=== PATIENT | female | born 1965 | race Caucasian/White ===

== ENCOUNTER 2023-07-09 03:59 | Inpatient (IN) | payer OTHER ==
[2023-07-09 04:04] LABS: Glucose,Whole Blood 209 mg/dL (70-110)
[2023-07-09] MEDS ORDERED: SODIUM CHLORIDE 0.9% 1,000 ML IV ONE (04:12)
[2023-07-09] MEDS ORDERED: SODIUM CHLORIDE 0.9% 1,000 ML IV STA (04:12)
[2023-07-09] MEDS ORDERED: ONDANSETRON 4 MG/2 ML VIAL IVP STA (04:12)
[2023-07-09] MEDS ORDERED: LORazepam 2 MG/ML INJ IV STA (04:12)
[2023-07-09 04:14] LABS: WBC 4.8 k/uL (3.8-10.6)
[2023-07-09 04:15] LABS: Basophils % (A) 1 %; Eosinophils % (A) 1 %; HCT 38.3 % (34.0-46.0); HGB 13.3 gm/dL (11.4-16.0); Lymphocytes % (A) 21 %; MCH 35.7 pg (25.0-35.0); MCHC 34.6 g/dL (31.0-37.0); MCV 103.2 fL (80.0-100.0); Macrocytosis Slight; Mean Platelet Volume 9.3; Monocytes # (A) 0.5 k/uL (0-1.0); Monocytes % (A) 10 %; Neutrophils # (A) 3.1 k/uL (1.3-7.7); Neutrophils % (A) 65 %; RBC 3.71 m/uL (3.80-5.40); RDW 13.6 % (11.5-15.5)
--- NOTE | 2023-07-09 04:16 | ED ---
Seizure HPI - General Chief Complaint: Seizure Stated Complaint: Seizure Time Seen by Provider: 07/09/23 04:04 Source: patient Mode of arrival: EMS Limitations: no limitations - History of Present Illness Initial Comments: Patient is 57-year-old woman who arrives by ambulance to evaluation after seizure. The patient reportedly had a history of seizures since approximately 2 years ago. Last previous seizure was months ago. Tonight she was at home when she had a generalized tonic-clonic seizure lasting a couple of minutes. She went to sleep tonight and then had another seizure also lasting minutes. EMS was called and they bring the patient here. On arrival she states she has had previous evaluation though she is not taking any medications. The patient does drink daily stating that she drinks proximally 3 drinks per day. She states if she gets a day she does feel extremely shaky. Patient believes she takes his seizure medicine that starts with B Complaint: seizure -: minutes(s) Description of Episode: loss of consciousness, tonic-clonic movement -: minutes(s) Witnessed: yes - by bystander Seizure History: known seizure disorder Place: home Associated Symptoms: other Treatments Prior to Arrival: none - Related Data Home Medications Medication Instructions Recorded Confirmed Folic Acid 1 mg PO DAILY 07/09/23 07/09/23 Losartan [Cozaar] 50 mg PO DAILY 07/09/23 07/09/23 Metoprolol Tartrate [Lopressor] 50 mg PO BID 07/09/23 07/09/23 amLODIPine [Norvasc] 5 mg PO DAILY 07/09/23 07/09/23 cloNIDine HCL [Catapres] 0.1 mg PO TID 07/09/23 07/09/23 Previous Rx's Medication Instructions Recorded Lacosamide [Vimpat] 50 mg PO BID 30 Days tab 07/12/23 chlordiazePOXIDE HCl [Librium] 25 mg PO DIRECTED 4 Days #10 07/12/23 capsule Allergies Allergy/AdvReac Type Severity Reaction Status Date / Time bumetanide AdvReac Nausea & Verified 07/09/23 08:47 Vomiting pollen extracts AdvReac Unknown Verified 07/09/23 08:47 Review of Systems ROS Statement: Those systems with pertinent positive or pertinent negative responses have been documented in the HPI. ROS Other: All systems not noted in ROS Statement are negative. Constitutional: Denies: fever, chills Respiratory: Denies: cough, dyspnea Cardiovascular: Denies: chest pain, palpitations Gastrointestinal: Reports: nausea, vomiting. Denies: abdominal pain, diarrhea Genitourinary: Denies: dysuria, hematuria Musculoskeletal: Denies: back pain Skin: Denies: rash Neurological: Denies: headache, weakness, numbness Psychiatric: Reports: anxiety. Denies: suicidal thoughts Past Medical History Past Medical History: Hypertension, Seizure Disorder History of Any Multi-Drug Resistant Organisms: None Reported Past Surgical History: Section Past Psychological History: Anxiety Smoking Status: Former smoker Past Alcohol Use History: Daily Past Drug Use History: None Reported General Exam Limitations: no limitations General appearance: alert, anxious Head exam: Present: atraumatic, normocephalic Eye exam: Present: normal appearance. Absent: scleral icterus, conjunctival injection ENT exam: Present: mucous membranes moist, other (Patient does have small laceration to the left lateral aspect of the tongue and also one to the distal tip of the tongue.) Neck exam: Present: normal inspection, full ROM. Absent: tenderness Respiratory exam: Present: normal lung sounds bilaterally. Absent: respiratory distress, wheezes, rales, rhonchi, stridor, accessory muscle use Cardiovascular Exam: Present: regular rate, normal rhythm, normal heart sounds. Absent: systolic murmur, diastolic murmur, rubs, gallop GI/Abdominal exam: Present: soft. Absent: distended, tenderness, guarding, rebound, rigid, mass Extremities exam: Present: normal inspection, normal capillary refill. Absent: pedal edema, calf tenderness Back exam: Present: normal inspection. Absent: CVA tenderness (R), CVA tenderness (L) Neurological exam: Present: alert Skin exam: Present: warm, dry, intact, normal color. Absent: rash Course Vital Signs 07/09/23 07/09/23 07/09/23 04:00 04:42 06:15 Temperature 98.7 F Pulse Rate 86 98 84 Respiratory 18 18 16 Rate Blood Pressure 178/96 158/79 149/77 O2 Sat by Pulse 95 98 97 Oximetry 07/09/23 07/09/23 07/09/23 10:50 13:26 14:43 Temperature 99.1 F Pulse Rate 80 70 78 Respiratory 18 18 18 Rate Blood Pressure 162/98 150/77 O2 Sat by Pulse 96 99 98 Oximetry 07/09/23 07/10/23 07/10/23 20:25 03:00 06:46 Temperature 99.2 F Pulse Rate 87 77 82 Respiratory 16 18 18 Rate Blood Pressure 169/84 140/78 169/90 O2 Sat by Pulse 97 96 96 Oximetry Medical Decision Making - Medical Decision Making Shouldn't is 57-year-old woman with history of previous seizures, arriving to have evaluation after having 2 seizures at home tonight. We'll admit patient to have neurology consultation, case discussed with internal medicine and patient will receive Keppra to prevent further seizures. In addition CIWA protocol is ordered The patient had CT of the brain which I interpreted as negative for acute intracranial hemorrhage or bony trauma. Was pt. sent in by a medical professional or institution (, PA, APPEALS REPRESENTATIVE, urgent care, hospital, or penitentiary...) When possible be specific @ -[No] Did you speak to anyone other than the patient for history (EMS, parent, family, police, friend...)? What history was obtained from this source @ -[No] Did you review nursing and triage notes (agree or disagree)? Why? @ -[I reviewed and agree with nursing and triage notes] Were old charts reviewed (outside hosp., previous admission, EMS record, old EKG, old radiological studies, urgent care reports/EKG's, penitentiary records)? Report findings @ -[No old charts were reviewed] Differential Diagnosis (chest pain, altered mental status, abdominal pain women, abdominal pain men, vaginal bleeding, weakness, fever, dyspnea, syncope, headache, dizziness, GI bleed, back pain, seizure, CVA, palpatations, mental health, musculoskeletal)? @ -[Differential Seizure: Recurrent seizure disorder, febrile seizure, alcohol withdrawal, stimulants, meningitis, encephalitis, intercranial hemorrhage, intracranial tumor, stroke, eclampsia, thyrotoxicosis, hypocalcemia, hyponatremia, hypernatremia, hypomagnesemia, psychogenic, this is not meant to be an all-inclusive list. EKG interpreted by me (3pts min.). @ -[I interpreted as above] X-rays interpreted by me (1pt min.). @ -[None done] CT interpreted by me (1pt min.). @ -[Interpreted as above U/S interpreted by me (1pt. min.). @ -[None done] What testing was considered but not performed or refused? (CT, X-rays, U/S, labs)? Why? @ -[None] What meds were considered but not given or refused? Why? @ -[None] Did you discuss the management of the patient with other professionals (professionals i.e. , PA, APPEALS REPRESENTATIVE, lab, RT, psych nurse, transition social worker, reception manager, teacher, air force senior officer, porter sample case)? Give summary @ -[Case discussed with admitting physician and treatment recommendations are incorporated Was smoking cessation discussed for >3mins.? @ -[No] Was critical care preformed (if so, how long)? @ -[No] Were there social determinants of health that impacted care today? How? (Homelessness, low income, unemployed, alcoholism, drug addiction, trans portation, low edu. Level, literacy, decrease access to med. care, long term, rehab)? @ -[No] Was there de-escalation of care discussed even if they declined (Discuss DNR or withdrawal of care, Hospice)? DNR status @ -[No] What co-morbidities impacted this encounter? (DM, HTN, Smoking, COPD, CAD, Cance r, CVA, ARF, Chemo, Hep., AIDS, mental health diagnosis, sleep apnea, morbid obesity)? @ -Alcohol dependence Was patient admitted / discharged? Hospital course, mention meds given and route, prescriptions, significant lab abnormalities, going to OR and other pertinent info. @ -[As above Undiagnosed new problem with uncertain prognosis? @ -[No] Drug Therapy requiring intensive monitoring for toxicity (Heparin, Nitro, Insulin, Cardizem)? @ -[No] Were any procedures done? @ -[No] Diagnosis/symptom? @ -[Acute generalized tonic-clonic seizure Alcohol withdrawal Acute, or Chronic, or Acute on Chronic? @ -[Acute Uncomplicated (without systemic symptoms) or Complicated (systemic symptoms)? @ -[Alcohol withdrawal complicated by seizure Side effects of treatment? @ -[No] Exacerbation, Progression, or Severe Exacerbation? @ -[No] Poses a threat to life or bodily function? How? (Chest pain, USA, GA, pneumonia, PE, COPD, DKA, ARF, appy, cholecystitis, CVA, Diverticulitis, Homicidal, Suici archie, threat to staff... and all critical care pts) @ -Yes there is significant morbidity and mortality associated with alcohol withdrawal that is not properly treated - Lab Data Result diagrams: 07/09/23 04:07 07/10/23 07:21 Lab Results 07/09/23 07/09/23 07/09/23 Range/Units 04:02 04:07 04:07 WBC 4.8 (3.8-10.6) k/uL RBC 3.71 L (3.80-5.40) m/uL Hgb 13.3 (11.4-16.0) gm/dL Hct 38.3 (34.0-46.0) % MCV 103.2 H (80.0-100.0) fL MCH 35.7 H (25.0-35.0) pg MCHC 34.6 (31.0-37.0) g/dL RDW 13.6 (11.5-15.5) % Plt Count 53 L (150-450) k/uL MPV 9.3 Neutrophils % 65 % Lymphocytes % 21 % Monocytes % 10 % Eosinophils % 1 % Basophils % 1 % Neutrophils # 3.1 (1.3-7.7) k/uL Lymphocytes # 1.0 (1.0-4.8) k/uL Monocytes # 0.5 (0-1.0) k/uL Eosinophils # 0.0 (0-0.7) k/uL Basophils # 0.0 (0-0.2) k/uL Manual Slide Review Performed Macrocytosis Slight Sodium 134 L (137-145) mmol/L Potassium 3.7 (3.5-5.1) mmol/L Chloride 101 (98-107) mmol/L Carbon Dioxide 18 L (22-30) mmol/L Anion Gap 15 mmol/L BUN 10 (7-17) mg/dL Creatinine 0.57 (0.52-1.04) mg/dL Est GFR (CKD-EPI)AfAm >90 (>60 ml/min/1.73 sqM) Est GFR (CKD-EPI)NonAf >90 (>60 ml/min/1.73 sqM) Glucose 195 H (74-99) mg/dL POC Glucose (mg/dL) 209 H (70-110) mg/dL POC Glu Metal Reed Tuner ID Heriberto Devi Calcium 9.1 (8.4-10.2) mg/dL Magnesium 1.2 L (1.6-2.3) mg/dL Total Bilirubin 1.2 (0.2-1.3) mg/dL AST 80 H (14-36) U/L ALT 40 H (4-34) U/L Alkaline Phosphatase 174 H (38-126) U/L Total Protein 8.5 H (6.3-8.2) g/dL Albumin 4.6 (3.5-5.0) g/dL Serum Alcohol <10 mg/dL - EKG Data -: EKG Interpreted by Me EKG shows normal: sinus rhythm, axis (Normal), intervals (Normal), QRS complexes (Normal), ST-T waves (Normal) Rate: normal (Rate 86 bpm) Interpretation: normal EKG Disposition Clinical Impression: Generalized seizure Disposition: ADMITTED IP TO THIS HOSP Condition: Stable Is patient prescribed a controlled substance at d/c from ED?: No
[2023-07-09 04:33] LABS: Platelet Count 53 k/uL (150-450)
[2023-07-09 04:55] LABS: ALT 40 U/L (4-34); AST 80 U/L (14-36); African American GFR (CKD) >90 (>60 ml/min/1.73 sqM); Albumin 4.6 g/dL (3.5-5.0); Alcohol <10 mg/dL; Alkaline Phosphatase 174 U/L (38-126); Anion Gap 15 mmol/L; Blood Urea Nitrogen 10 mg/dL (7-17); Calcium 9.1 mg/dL (8.4-10.2); Carbon Dioxide 18 mmol/L (22-30); Chloride 101 mmol/L (98-107); Glucose 195 mg/dL (74-99); Magnesium 1.2 mg/dL (1.6-2.3); Non-African American GFR(CKD) >90 (>60 ml/min/1.73 sqM); Potassium 3.7 mmol/L (3.5-5.1); Sodium 134 mmol/L (137-145); Total Bilirubin 1.2 mg/dL (0.2-1.3); Total Protein 8.5 g/dL (6.3-8.2)
[2023-07-09] MEDS ORDERED: MAGNESIUM SULFATE-D5W PMX 1 GM in DEXTROSE/WATER 1 100ML.BAG IVPB ONE (05:03)
[2023-07-09] MEDS ORDERED: ACETAMINOPHEN TAB 325 MG TAB PO PRN (06:42)
[2023-07-09] MEDS ORDERED: NALOXONE 0.4 MG/ML 1 ML VIAL IV PRN (06:42)
[2023-07-09] MEDS ORDERED: chlordiazePOXIDE 25 MG CAP PO PRN (06:46)
[2023-07-09] MEDS ORDERED: LORazepam 2 MG/ML INJ IV PRN ×3 (06:46)
--- NOTE | 2023-07-09 07:33 | CT ---
EXAMINATION TYPE: CT brain wo con DATE OF EXAM: 07/09/2023 COMPARISON: 05/14/2023 HISTORY: 57-year-old female Seizure TECHNIQUE: Examination was done in axial plane without intravenous contrast. Coronal and sagittal r econstructions performed. CT DLP: 1094.9 mGycm Automated exposure control for dose reduction was used. FINDINGS: There is no evidence of acute intracranial hemorrhage, acute ischemic changes, mass, mass-effect, or extra-axial fluid collection. There is no effacement of cerebral sulci or basal subarachnoid cister ns. There is no hydrocephalus. There is no midline shift. Del Angel-white matter distinction is preserv ed. Mild patchy white matter hypodensities in both cerebral hemispheres. Paranasal sinuses and mastoid air cells well pneumatized. Orbits and globes are intact. IMPRESSION: Mild patchy burden of chronic small vessel ischemic disease. No acute intracranial abnormality seen.
[2023-07-09] MEDS ORDERED: levETIRAcetam IV 2,000 MG in SODIUM CHLORIDE 0.9% 250 ML IVPB ONE (08:00)
[2023-07-09] MEDS ORDERED: FAMOTIDINE 20 MG TAB PO SCH (09:00)
[2023-07-09] MEDS ORDERED: Magnesium Replacement Protocol 1 EACH MISC MISCELLANE PRN (09:32)
[2023-07-09] MEDS ORDERED: DEXTROSE 50% SYRINGE 50 ML IVP PRN ×2 (09:35)
[2023-07-09] MEDS: SODIUM CHLORIDE 0.9% 1,000 ML IV SCH ×3 (10:00→21:11)
[2023-07-09] MEDS: PANTOPRAZOLE 40 MG/10 ML VIAL IVP SCH ×2 (11:01→20:27)
[2023-07-09] MEDS: amLODIPine 5 MG TAB PO SCH (11:02)
[2023-07-09] MEDS: cloNIDine HCL 0.1 MG TAB PO SCH ×2 (11:02→15:13)
[2023-07-09] MEDS: LOSARTAN 50 MG TAB PO SCH (11:02)
[2023-07-09] MEDS: FOLIC ACID 1 MG TAB PO SCH (11:03)
[2023-07-09] MEDS: METOPROLOL TARTRATE 50 MG TAB PO SCH ×2 (11:03→20:27)
[2023-07-09] MEDS: MAGNESIUM SULFATE-D5W PMX 1 GM in DEXTROSE/WATER 1 100ML.BAG IVPB SCH ×4 (11:26→17:34)
[2023-07-09 13:04] LABS: Glucose,Whole Blood 124 mg/dL (70-110)
[2023-07-09] MEDS: INSULIN ASPART (NovoLOG) 100 UNIT/ML VIAL SQ SCH ×3 (13:07→21:20)
--- NOTE | 2023-07-09 13:09 | P.CNNES ---
History of Present Illness Consult date: 07/09/23 Requesting physician: Nato Brewer Reason for Consult: seizure History of Present Illness: This is a 57-year-old woman who presented emergency department because of the seizure. Patient's boyfriend is at bedside. The patient she had the seizure activity and per the boyfriend she had 2 seizure-like activity in which at 1:30 AM today boyfriend woke up from bed and she was shaking all over, had nausea vomiting. The episode last for 5 minutes and had the post ictal confusion. She had tongue bite. Then she had another episode after that. Patient drinks daily alcohol according to the boyfriend and it's heavy alcohol. She drinks between 3-4 small bottles but per boyfriend it heavy concentrated in alcohol and last drink was 2 days ago. Cord the boyfriend she had 5 seizure-like activity this year. According to the patient the these happened she thinks when she stopped drinking alcohol but. Been having seizure-like activity for couple years. She denies it being at [facility] in the past or being on any antiepileptic drugs. She denies of any brain mass. Denies any fevers. Denies of any sickness. She does have underlying anxiety. At times when patient was talking she was tangential. Some of the workup during his hospital visit consisted of: Patient is afebrile Serum glucose is 195, sodium is 134, calcium is 9.1, magnesium is 1.2, AST of 80 and ALT of 40. Ammonia level is 19. Serum alcohol level is <10. CT of the head is reported as mild patchy burden of chronic small vessel isch emic disease. No acute intracranial abnormality seen. Personally reviewed the CT and I agree there is no acute subacute the ischemia or any acute abnormality. Review of Systems The positive and negative as per HPI. Past Medical History Past Medical History: Hypertension, Seizure Disorder History of Any Multi-Drug Resistant Organisms: None Reported Past Surgical History: Section Past Psychological History: Anxiety Smoking Status: Former smoker Past Alcohol Use History: Daily Past Drug Use History: None Reported Medications and Allergies Home Medications Medication Instructions Recorded Confirmed Type Folic Acid 1 mg PO DAILY 07/09/23 07/09/23 History Losartan [Cozaar] 50 mg PO DAILY 07/09/23 07/09/23 History Metoprolol Tartrate [Lopressor] 50 mg PO BID 07/09/23 07/09/23 History amLODIPine [Norvasc] 5 mg PO DAILY 07/09/23 07/09/23 History cloNIDine HCL [Catapres] 0.1 mg PO TID 07/09/23 07/09/23 History hydrOXYzine HCL [Atarax] 10 mg PO TID PRN 07/09/23 07/09/23 History Allergies Allergy/AdvReac Type Severity Reaction Status Date / Time bumetanide AdvReac Nausea & Verified 07/09/23 08:47 Vomiting pollen extracts AdvReac Unknown Verified 07/09/23 08:47 Physical Examination - Vital Signs Vital Signs: Vital Signs Temp Pulse Resp BP Pulse Ox 07/09/23 10:50 99.1 F 80 18 162/98 96 07/09/23 06:15 84 16 149/77 97 07/09/23 04:42 98 18 158/79 98 07/09/23 04:00 98.7 F 86 18 178/96 95 Intake and Output 07/08/23 07/09/23 07/09/23 22:59 06:59 14:59 Other: Weight 68.039 kg GENERAL: The patient is lying in bed and is not in acute distress. Psych: At times patient is tangential. NEUROLOGICAL: Higher mental function: The patient is awake, alert, oriented to self, place and time. Patient is following commands. No aphasia and no neglect. As stated earlier at times patient is tangential. Cranial nerves: The pupils are round, equal and reactive to light. Visual betancourt are full to confrontation throughout. Extraocular movement is intact no nystagmus is noted. Facial sensation is normal to touch throughout. The facial strength is normal throughout. Hearing is normal bilaterally to hand rub. Tongue is midline and moved [id number] without any difficulty. No dysarthria is noted. Has tongue bite over the left later mid-region. Shoulder shrug is normal bilaterally. Motor: The strength is 5 over 5 throughout. Normal tone and bulk. Cerebellum: Normal finger to nose bilaterally. Sensation: Sensation is normal to touch throughout. Reflexes (right/left): 2+ throughout Plantars are downgoing bilaterally. Results - Laboratory Findings CBC and BMP: 07/09/23 04:07 07/09/23 04:07 Abnormal Lab Findings: Abnormal Labs 07/09/23 07/09/23 07/09/23 04:02 04:07 04:07 RBC 3.71 L MCV 103.2 H MCH 35.7 H Plt Count 53 L Sodium 134 L Carbon Dioxide 18 L Glucose 195 H POC Glucose (mg/dL) 209 H Magnesium 1.2 L AST 80 H ALT 40 H Alkaline Phosphatase 174 H Total Protein 8.5 H Assessment and Plan Assessment: This is a 57-year-old woman with history of seizures, heavy alcohol use who presented emergency department because of the 2 seizure-like activity past midnight according to the bodyfriend. Her last alcohol drink was two days ago. The patient whenever she tries to stop drinking she'll get his seizures and she is not on any antiepileptic drugs. Alcohol level <10. Break-through seizure: Seems provoked due to alcohol withdrawal and component of electrolyte derangement (hypomagnesemia). Cannot rule out epileptic in nature. History of seizures. Not on antiepileptic drug. Hypomagenesemia. Heavy alcohol use on daily basis and last drink was 2 days ago Anxiety Plan: The ED gave the patient's Ativan 2 mg once then give her Keppra 2 g once. I started the patient on the Vimpat 50 mg twice a day since the patient has been having multiple seizures for year and I cannot rule out true epileptic natures. It seems more provoked seizures. I'll not start the patient on Keppra because of the side effects of the mood/behavioral especially with her severe anxiety and her boyfriend agrees with that. EEG is ordered pending I ordered MRI the brain Patient is on thiamine 100 mg daily, folic acid 1 mg daily. Seizure precautions seizure pads Per the [place] DMV, because of the seizures to avoid driving for 6 month until seizure-free, avoid heights, avoids swimming unassisted or using heavy machinery. Comment correction of hypomagnesemia we'll defer the management to the primary team We'll defer the rest of the medical management to primary team. Patient was counseled on alcohol cessation and consideration on inpatient rehab for alcohol use. The patient that she needs to follow-up with a neurologist as an outpatient within 1-2 weeks Plan discussed with the patient and her boyfriend who is at bedside as well as the patient nurse. Thank you for the consultation. Time with Patient: Greater than 30
--- NOTE | 2023-07-09 14:34 | MR ---
EXAMINATION TYPE: MR brain wo/w con DATE OF EXAM: 07/09/2023 COMPARISON: CT brain earlier today HISTORY: Seizure TECHNIQUE: Multiplanar, multisequence images of the brain and brainstem is performed without and with IV contras t, utilizing 6.5 mL intravenous Gadavist . FINDINGS: Diffusion weighted images demonstrate no evidence of a recent infarct or other diffusion ab normality. There is mild ventricular and sulcal prominence. There are scattered focal and confluent areas of T2 hyperdensity in the white matter bilaterally. Findings most prominent in the periventricu lar levels. T2 coronal weighted images show hippocampal direct comparison symmetric and felt within n ormal limits. Midline structures demonstrate normal morphology. The craniocervical junction appears within normal limits. Post contrast images demonstrate no abnormal enhancement. The dural venous sinuses appear pa tent. The visualized sinuses are clear and the globes are intact. IMPRESSION: 1. Mild diffuse cerebral atrophy and moderate chronic small vessel ischemic changes are appreciated. No suspicious enhancement or enhancing masses are noted.
--- NOTE | 2023-07-09 15:10 | P.HPIM ---
History of Present Illness H&P Date: 07/09/23 This is a 57-year-old female with medical history of hypertension and seizure disorder, anxiety former smoker and reports to daily alcohol use. Her seizure history is attributed to alcohol withdrawal seizure. She is maintained on antiseizure medication states that it starts with a B likely this is briviact she states that her PCP Dr. Woo started her on this. Patient admits to drinking 3 to 4 small sized wine bottles daily for the last 3 months she had been sober on and off since 2011 states she has been going to . Had a big family reunion out of state and began drinking daily. She does report her last drink as 2 days ago. Since then she has been having nausea vomiting and feeling off. States she had an episode of vomiting went to bed woke up and had a seizure. She did bite her tongue it is reddened and bruised. Initial Seizure onset was about 2 years ago and her most recent seizure was a few months ago prior to this episode. 5 reports in the last year, she is still driving. Seizure was witnessed by her significant other who had called EMS. Patient states when she came to EMS was there and brought her to the hospital for evaluation. Denies any headache, no dizziness or lightheadedness, no shortness of breath no chest pain. No difficulty swallowing or visual disturbances. No fever or chills no recent illness. Brain CT shows mild patchy burden of chronic small vessel ischemic disease with no acute intracranial abnormalities seen. EKG shows normal sinus rhythm heart rate of [address] or T-wave changes with evidence. Blood work on admission reveals a MCV of 103.2, platelet count of 53, sodium 134, glucose 195, magnesium 1.2 with elevated LFTs. She is admitted to the hospital under medicine with a consult placed to neurology for seizure-like activity. She has been started on CIWA protocol for alcohol withdrawal. Patient received magnesium supplementation. She received a prophylactic dose of IV keppra in the ER. REVIEW OF SYSTEMS: CONSTITUTIONAL: No fever, no malaise, no fatigue. HEENT: No recent visual problems or hearing problems. Denied any sore throat. CARDIOVASCULAR: No chest pain, orthopnea, PND, no palpitations, no syncope. PULMONARY: No shortness of breath, no cough, no hemoptysis. GASTROINTESTINAL: No diarrhea, no nausea, no vomiting, no abdominal pain. NEUROLOGICAL: No headaches, no weakness, no numbness. HEMATOLOGICAL: Denies any bleeding or petechiae. GENITOURINARY: Denies any burning micturition, frequency, or urgency. MUSCULOSKELETAL/RHEUMATOLOGICAL: Denies any joint pain, swelling, or any muscle pain. ENDOCRINE: Denies any polyuria or polydipsia. The rest of the 14-point review of systems is negative. PHYSICAL EXAMINATION: GENERAL: The patient is alert and oriented x3, not in any acute distress. Well developed, well nourished. HEENT: Pupils are round and equally reacting to light. EOMI. No scleral icterus. No conjunctival pallor. Normocephalic, atraumatic. No pharyngeal erythema. No thyromegaly. CARDIOVASCULAR: S1 and S2 present. No murmurs, rubs, or gallops. PULMONARY: Chest is clear to auscultation, no wheezing or crackles. ABDOMEN: Soft, nontender, nondistended, normoactive bowel sounds. No palpable organomegaly. MUSCULOSKELETAL: No joint swelling or deformity. EXTREMITIES: No cyanosis, clubbing, or pedal edema. NEUROLOGICAL: Gross neurological examination did not reveal any focal deficits. SKIN: No rashes. Assessment -Acute alcohol withdrawal and DTs last drink 2 days ago patient has been started on ativan CIWA protocol. Seizure precautions. -Seizure like activity likely from alcohol withdrawal patient does have history of alcohol withdrawal seizure and is maintained on antiseizure medication at home, however she has been noncompliant and has not been taking her medication daily. Neurology placed on consultation -Chronic alcoholism -Thrombocytopenia and macrocytosis from chronic alcohol use -Hyponatremia hypovolemic patient had multiple episodes of nausea and vomiting over the last few days -Hypomagnesemia supplemented and repeat level tomorrow -Hyperglycemia rule out diabetes mellitus -Alcoholic hepatitis follow up CMP tomorrow. -Hx seizure disorder GI prophylaxis Full Code The impression and plan of care has been dictated by Madelaine Freeman, Nurse Practitioner as directed. Dr. Krishan MD I have performed a history and physical examination and medical decision making of this patient, discussed the same with the dictator, and agree with the dictators assessment and plan as written, documented as a scribe. Based on total visit time, I have performed more than 50% of this visit. Past Medical History Past Medical History: Hypertension, Seizure Disorder History of Any Multi-Drug Resistant Organisms: None Reported Past Surgical History: Section Past Psychological History: Anxiety Smoking Status: Former smoker Past Alcohol Use History: Daily Past Drug Use History: None Reported Medications and Allergies Home Medications Medication Instructions Recorded Confirmed Type Folic Acid 1 mg PO DAILY 07/09/23 07/09/23 History Losartan [Cozaar] 50 mg PO DAILY 07/09/23 07/09/23 History Metoprolol Tartrate [Lopressor] 50 mg PO BID 07/09/23 07/09/23 History amLODIPine [Norvasc] 5 mg PO DAILY 07/09/23 07/09/23 History cloNIDine HCL [Catapres] 0.1 mg PO TID 07/09/23 07/09/23 History hydrOXYzine HCL [Atarax] 10 mg PO TID PRN 07/09/23 07/09/23 History Allergies Allergy/AdvReac Type Severity Reaction Status Date / Time bumetanide AdvReac Nausea & Verified 07/09/23 08:47 Vomiting pollen extracts AdvReac Unknown Verified 07/09/23 08:47 Physical Exam Vitals: Vital Signs Temp Pulse Resp BP Pulse Ox 07/09/23 06:15 84 16 149/77 97 07/09/23 04:42 98 18 158/79 98 07/09/23 04:00 98.7 F 86 18 178/96 95 Intake and Output 07/08/23 07/09/23 07/09/23 22:59 06:59 14:59 Other: Weight 68.039 kg Results CBC & Chem 7: 07/09/23 04:07 07/09/23 04:07 Labs: Abnormal Lab Results - Last 24 Hours (Table) 07/09/23 07/09/23 07/09/23 Range/Units 04:02 04:07 04:07 RBC 3.71 L (3.80-5.40) m/uL MCV 103.2 H (80.0-100.0) fL MCH 35.7 H (25.0-35.0) pg Plt Count 53 L (150-450) k/uL Sodium 134 L (137-145) mmol/L Carbon Dioxide 18 L (22-30) mmol/L Glucose 195 H (74-99) mg/dL POC Glucose (mg/dL) 209 H (70-110) mg/dL Magnesium 1.2 L (1.6-2.3) mg/dL AST 80 H (14-36) U/L ALT 40 H (4-34) U/L Alkaline Phosphatase 174 H (38-126) U/L Total Protein 8.5 H (6.3-8.2) g/dL Assessment and Plan Time with Patient: Less than 30
[2023-07-09 17:46] LABS: Glucose,Whole Blood 107 mg/dL (70-110)
--- NOTE | 2023-07-09 19:46 | EEG ---
ELECTROENCEPHALOGRAM REPORT CLINICAL HISTORY: This is a 57-year-old woman with history of seizure, alcohol use, who presented to the emergency department because of two seizure-like activities at home. The video EEG is obtained to evaluate for seizure epileptiform activity. RELEVANT MEDICATIONS: Keppra, Ativan. EEG TYPE: A routine 21-channel EEG with video using the 10/20 electrode placement system. DESCRIPTION: Wakefulness is only obtained. During awake state, the posterior-dominant rhythm consists of iwa-ca-fxrdtgaw voltage of 8.5 to 9.5 hertz activity. There is no physiological stage 2 sleep architecture. There is no focal slowing. Interictal and ictal is none. ACTIVATION PROCEDURE: Photic stimulation did not evoke a posterior driving response. There is no abnormality during the photic stimulation. Hyperventilation is not performed. CLINICAL INTERPRETATION: This is a normal routine EEG. There is no focal slowing, epileptiform discharge, or seizure on the EEG. A normal routine EEG does not rule out underlying epilepsy. Clinical correlation is recommended. AXEL / CRYSTAL: [id number] / ROBERTO
[2023-07-09] MEDS: LACOSAMIDE 50 MG TABLET PO SCH (20:27)
[2023-07-09] MEDS ORDERED: lamoTRIgine 25 MG TAB PO SCH (21:00)
[2023-07-09 21:20] LABS: Glucose,Whole Blood 118 mg/dL (70-110)
[2023-07-10 04:27] VITALS: RESP 18
[2023-07-10] MEDS: SODIUM CHLORIDE 0.9% 1,000 ML IV SCH (06:53)
[2023-07-10 08:06] LABS: Glucose,Whole Blood 119 mg/dL (70-110)
[2023-07-10] MEDS: METOPROLOL TARTRATE 50 MG TAB PO SCH (08:21)
[2023-07-10] MEDS: LACOSAMIDE 50 MG TABLET PO SCH (08:21)
[2023-07-10] MEDS: INSULIN ASPART (NovoLOG) 100 UNIT/ML VIAL SQ SCH ×2 (08:21→11:47)
[2023-07-10] MEDS: amLODIPine 5 MG TAB PO SCH (08:21)
[2023-07-10] MEDS: FOLIC ACID 1 MG TAB PO SCH (08:21)
[2023-07-10] MEDS: cloNIDine HCL 0.1 MG TAB PO SCH (08:21)
[2023-07-10] MEDS: LOSARTAN 50 MG TAB PO SCH (08:21)
[2023-07-10] MEDS: PANTOPRAZOLE 40 MG/10 ML VIAL IVP SCH (08:22)
[2023-07-10 08:27] VITALS: BP 173/83; PULSE 78; TEMP 98.8
[2023-07-10] MEDS ORDERED: THIAMINE 100 MG TAB PO SCH (09:00)
[2023-07-10] MEDS ORDERED: SODIUM CHLORIDE 0.9% 1,000 ML IV SCH (10:00)
[2023-07-10 10:27] LABS: ALT 34 U/L (4-34); AST 83 U/L (14-36); African American GFR (CKD) >90 (>60 ml/min/1.73 sqM); Albumin 4.5 g/dL (3.5-5.0); Albumin/Globulin Ratio 1.2; Alkaline Phosphatase 137 U/L (38-126); Anion Gap 11 mmol/L; Blood Urea Nitrogen 5 mg/dL (7-17); Calcium 9.1 mg/dL (8.4-10.2); Carbon Dioxide 23 mmol/L (22-30); Chloride 103 mmol/L (98-107); Globulin 3.9 g/dL; Glucose 109 mg/dL (74-99); Magnesium 1.9 mg/dL (1.6-2.3); Non-African American GFR(CKD) >90 (>60 ml/min/1.73 sqM); Potassium 3.5 mmol/L (3.5-5.1); Sodium 137 mmol/L (137-145); Total Bilirubin 1.5 mg/dL (0.2-1.3); Total Protein 8.4 g/dL (6.3-8.2)
[2023-07-10 11:28] LABS: Glucose,Whole Blood 109 mg/dL (70-110)
--- NOTE | 2023-07-10 12:50 | P.PN ---
Subjective Progress Note Date: 07/10/23 I am following-up with patient and per the nurse no further seizures yesterday or today. Patient feels she is doing better. Her PCP office was contacted by the nurse and patient was never given a script for seizure medications. Objective - Vital Signs Vital signs: Vital Signs Temp 98.8 F 07/10/23 08:03 Pulse 78 07/10/23 08:03 Resp 18 07/10/23 08:03 BP 173/83 07/10/23 08:03 Pulse Ox 96 07/10/23 08:03 FiO2 Intake & Output 07/09/23 07/10/23 07/10/23 18:59 06:59 18:59 Weight 68.039 kg - Exam General: Lying in bed and is not in acute distress. Neuro: The patient is awake, alert, oriented to self, place and time. Is following simple commands. No aphasia or neglect. Pupils are round, right is 4mm and left is 3mm and reactive to light equally. Visual bet[place] are full to confrontation. EOM is intact and no nystagmus. No dysarthria. Motor: Strength is 5/5 throughout. Sensation: Normal to touch throughout. Some of the workup during his hospital visit consisted of: Patient is afebrile Serum glucose is 195, sodium is 134, calcium is 9.1, magnesium is 1.2, AST of 80 and ALT of 40. Ammonia level is 19. Serum alcohol level is <10. CT of the head is reported as mild patchy burden of chronic small vessel ischemic disease. No acute intracranial abnormality seen. Personally reviewed the CT and I agree there is no acute subacute the ischemia or any acute abnormality. Routine EEG is normal. MRI Brain is reported as Mild diffuse cerebral atrophy and moderate chronic small vessel ischemic changes are appreciated. No suspicious enhancement or enhancing masses noted. I personally reviewed MRI and agree with report. - Labs CBC & Chem 7: 07/09/23 04:07 07/10/23 07:21 Labs: Abnormal Lab Results - Last 24 Hours (Table) 07/09/23 07/09/23 07/09/23 Range/Units 11:02 13:02 21:19 BUN (7-17) mg/dL Glucose (74-99) mg/dL POC Glucose (mg/dL) 124 H 118 H (70-110) mg/dL Total Bilirubin (0.2-1.3) mg/dL AST (14-36) U/L Alkaline Phosphatase (38-126) U/L Total Protein (6.3-8.2) g/dL RBC Folate 797 H (280 - 791) ng/mL 07/10/23 07/10/23 Range/Units 07:21 08:04 BUN 5 L (7-17) mg/dL Glucose 109 H (74-99) mg/dL POC Glucose (mg/dL) 119 H (70-110) mg/dL Total Bilirubin 1.5 H (0.2-1.3) mg/dL AST 83 H (14-36) U/L Alkaline Phosphatase 137 H (38-126) U/L Total Protein 8.4 H (6.3-8.2) g/dL RBC Folate (280 - 791) ng/mL Assessment and Plan Assessment: This is a 57-year-old woman with history of seizures, heavy alcohol use who presented emergency department because of the 2 seizure-like activity past midnight according to the bodyfriend. Her last alcohol drink was two days ago. The patient whenever she tries to stop drinking she'll get his seizures and she is not on any antiepileptic drugs. Alcohol level <10. Break-through seizure: Seems provoked due to alcohol withdrawal and component of electrolyte derangement (hypomagnesemia). Cannot rule out epileptic in nature. EEG and MRI are unremarkable. History of seizures. Not on antiepileptic drug. Hypomagenesemia--resolved Heavy alcohol use on daily basis and last drink was 2 days ago Anxiety Plan: I started the patient on the Vimpat 50 mg twice a day since the patient has been having multiple seizures for year and I cannot rule out true epileptic natures. I'll not start the patient on Keppra because of the side effects of the mood/behavioral especially with her severe anxiety and her boyfriend agrees with that. Patient is on thiamine 100 mg daily, folic acid 1 mg daily. Seizure precautions seizure pads Per the machine DMV, because of the seizures to avoid driving for 6 month until seizure-free, avoid heights, avoids swimming unassisted or using heavy machinery. We'll defer the rest of the medical management to primary team. Patient was counseled on alcohol cessation and consideration on inpatient rehab for alcohol use. She refused and wants seek [facility] as outpatient. The patient that she needs to follow-up with a neurologist as an outpatient within 1-2 weeks Plan discussed with the patient, N.P. from primary team and her nurse. There is no further neurological work-up. Will sign off. Please reconsult if needed. Time with Patient: Less than 30
--- NOTE | 2023-07-12 22:39 | P.DS ---
Providers Date of admission: 07/09/23 06:42 Attending physician: Andria Love Consults: 07/09/23 06:42 Consult Physician Routine Consulting Provider: Kyle Babni Consult Reason/Comments: seizures Do you want consulting provider notified?: Yes Primary care physician: Chilo Denson Hospital Course: Final Diagnosis -Acute alcohol withdrawal and DTs last drink 2 days ago -Seizure like activity likely from alcohol withdrawal patient does have history of alcohol withdrawal seizure -Chronic alcoholism -Thrombocytopenia and macrocytosis from chronic alcohol use -Hyponatremia hypovolemic patient had multiple episodes of nausea and vomiting over the last few days -Hypomagnesemia supplemented -Hyperglycemia rule out diabetes mellitus -Alcoholic hepatitis follow up CMP tomorrow. -Hx seizure disorder Discharge Disposition Patient is stable for discharge. Recommending total alcohol cessation. Has been sent on librium taper for the next 4 days. Advised cannot drink alcohol while on librium and patient agrees. Patient to return to AA meetings and other community resources and also will look into rehab. Patient has been started on Vimpat BID . Recommending to see a neurologist in 1 week. Follow up with PCP and also repeat labs n 2 to 3 days. Per the DMV, because of the seizures to avoid driving for 6 month until seizure-free, avoid heights, avoids swimming unassisted or using heavy machinery. Hospital Course This is a 57-year-old female with medical history of hypertension and seizure disorder, anxiety former smoker and reports to daily alcohol use. Her seizure history is attributed to alcohol withdrawal seizure. She is maintained on antiseizure medication states that it starts with a B likely this is briviact she states that her PCP Dr. Woo started her on this. Patient admits to drinking 3 to 4 small sized wine bottles daily for the last 3 months she had been sober on and off since 2011 states she has been going to AA. Had a big family reunion out of state and began drinking daily. She does report her last drink as 2 days ago. Since then she has been having nausea vomiting and feeling off. States she had an episode of vomiting went to bed woke up and had a seizure. She did bite her tongue it is reddened and bruised. Initial Seizure onset was about 2 years ago and her most recent seizure was a few months ago prior to this episode. 5 reports in the last year, she is still driving. Seizure was witnessed by her significant other who had called EMS. Patient states when she came to EMS was there and brought her to the hospital for evaluation. Denies any headache, no dizziness or lightheadedness, no shortness of breath no chest pain. No difficulty swallowing or visual disturbances. No fever or chills no recent illness. Brain CT shows mild patchy burden of chronic small vessel ischemic disease with no acute intracranial abnormalities seen. EKG shows normal sinus rhythm heart rate of [address] or T-wave changes with evidence. Blood work on admission reveals a MCV of 103.2, platelet count of 53, sodium 134, glucose 195, magnesium 1.2 with elevated LFTs. She is admitted to the hospital under medicine with a consult placed to neurology for seizure-like activity. She has been started on CIWA protocol for alcohol withdrawal. Patient received magnesium supplementation. She received a prophylactic dose of IV keppra in the ER. Neurology recommending further work up. Patient had a brain MRI done showing mild diffuse cerebral atrophy and moderate chronic small vessel ischemic changes are appreciated. No suspicious enhancement or enhancing masses are noted. Had EEG which was normal routine EEG with no focal slowing, epileptiform discharge or seizure on the EEG. Neurology did recommending starting the patient on vimpat 50 mg BID. She has been monitored and is not requiring ativan and has no further seizure like activity noted. She is currently alert x3. Discussed the importance of alcohol cessation with patient who verbalizes understanding and has plan to begin attending AA meetings. Patient does have to work on Thursday, discussed that per DMV patient cannot drive or operative heavy machinery climb ladders or swim alone for the next 6 months or until seizure free. She needs to follow up with a neurologist on disharge. Please see medication reconciliation for a list of current medications. Thank you for allowing us to participate in the care of this patient. The impression and plan of care has been dictated by Madelaine Freeman Nurse Practitioner as directed. Dr. Krishan MD I have performed a history and physical examination and medical decision making of this patient, discussed the same with the dictator, and agree with the dictators assessment and plan as written, documented as a scribe. Based on total visit time, I have performed more than 50% of this visit. Patient Condition at Discharge: Stable Plan - Discharge Summary Discharge Rx Participant: Yes New Discharge Prescriptions: New Lacosamide [Vimpat] 50 mg PO BID 30 Days tab chlordiazePOXIDE HCl [Librium] 25 mg PO DIRECTED 4 Days #10 capsule Continue amLODIPine [Norvasc] 5 mg PO DAILY Losartan [Cozaar] 50 mg PO DAILY Folic Acid 1 mg PO DAILY Metoprolol Tartrate [Lopressor] 50 mg PO BID cloNIDine HCL [Catapres] 0.1 mg PO TID Discontinued hydrOXYzine HCL [Atarax] 10 mg PO TID PRN PRN Reason: Anxiety Discharge Medication List Folic Acid 1 mg PO DAILY 07/09/23 [History] Losartan [Cozaar] 50 mg PO DAILY 07/09/23 [History] Metoprolol Tartrate [Lopressor] 50 mg PO BID 07/09/23 [History] amLODIPine [Norvasc] 5 mg PO DAILY 07/09/23 [History] cloNIDine HCL [Catapres] 0.1 mg PO TID 07/09/23 [History] Lacosamide [Vimpat] 50 mg PO BID 30 Days tab 07/12/23 [Rx] chlordiazePOXIDE HCl [Librium] 25 mg PO DIRECTED 4 Days #10 capsule 07/12/23 [Rx] Follow up Appointment(s)/Referral(s): Jarett Woo MD [Primary Care Provider] - 1-2 days (Office is closed at time discharge. Please call for follow-up appointment.) Barbara Landis MD [Medical Doctor] - 1 Week (Office states to have patient call for appointment time and date.) Ambulatory/Diagnostic Orders: Basic Metabolic Panel [LAB.AMB] Time Frame: 3 Days, Location: None Selected Magnesium [LAB.AMB] Location: None Selected Patient Instructions/Handouts: Seizure/Epilepsy Discharge Instructions & Follow-Up Activity/Diet/Wound Care/Special Instructions: Per the DMV, because of the seizures to avoid driving for 6 month until seizure- free, avoid heights, avoids swimming unassisted or using heavy machinery. Patient is started on VIMPAT twice a day for seizures Activity limited until follow up Needs to see PCP Recommend total alcohol cessation Do Not drink alcohol while using librium for alcohol withdrawal symptoms Discharge/Stand Alone Forms: AA Meetings [place], Area PCPs Discharge Disposition: HOME SELF-CARE
== END 2023-07-10 16:18 | disposition home or self-care (01) | DRG 897 ==
LOC: EC 03:59 → 4SSUR 06:42
PROVIDERS: ADMIT Hospitalist; ATTEND Hospitalist
DX: F10.231 Alcohol dependence with withdrawal delirium (principal); E87.1 Hypo-osmolality and hyponatremia; G40.909 Epilepsy, unspecified, not intractable, without status epilepticus; F41.9 Anxiety disorder, unspecified; E83.42 Hypomagnesemia; I10 Essential (primary) hypertension; K70.10 Alcoholic hepatitis without ascites; D69.6 Thrombocytopenia, unspecified; Z79.899 Other long term (current) drug therapy; Z87.891 Personal history of nicotine dependence; T42.76XA Underdosing of unspecified antiepileptic and sedative-hypnotic drugs, initial encounter; Z91.128 Patient's intentional underdosing of medication regimen for other reason; Z91.199 Patient's noncompliance with other medical treatment and regimen due to unspecified reason
CPT/HCPCS: 36415; 70450; 70553; 80053; 80320; 82140; 82607; 82747; 83036; 83735; 85025; 93005; 95816; 96361; 96365; 96366; 96367; 96375; 96376; 99285

== ENCOUNTER 2023-10-15 15:21 | Observation (INO) | payer OTHER ==
[2023-10-15] MEDS ORDERED: LORazepam 2 MG/ML INJ IV PRN ×2 (15:59)
--- NOTE | 2023-10-15 16:28 | XR ---
EXAMINATION TYPE: XR chest 1V portable DATE OF EXAM: 10/15/2023 COMPARISON: 02/18/2019 HISTORY: Abdominal pain TECHNIQUE: Single frontal view of the chest is obtained. FINDINGS: There is no focal air space opacity, pleural effusion, or pneumothorax seen. The cardiac silhouette size is within normal limits for the technique. The osseous structures are intact. IMPRESSION: No acute process.
--- NOTE | 2023-10-15 16:35 | ED ---
General Adult HPI - General Chief complaint: Alcohol Stated complaint: Seizures/shaky Time Seen by Provider: 10/15/23 15:52 Source: patient, RN notes reviewed, old records reviewed Mode of arrival: ambulatory Limitations: no limitations - History of Present Illness Initial comments: Patient is a 57-year-old female who presents emergency department complaining of alcohol withdrawals and stating she is concerned she may have a seizure. Suppos ed to be on lacosamide for seizures however has been out of her medication since Thursday. Is asking for refill, but states she also is asking to look to detox from alcohol. Does have a history of delirium tremens per patient, with delirium as well as alcohol induced seizures. She currently denies any chest pain or shortness of breath. Endorses mild epigastric discomfort. Has no other acute complaints at this time. Presents for further evaluation at this time. Denies any fevers, chills, cough. Denies any recent seizures. Last drink was yesterday. - Related Data Home Medications Medication Instructions Recorded Confirmed Folic Acid 1 mg PO DAILY 07/09/23 10/15/23 amLODIPine [Norvasc] 10 mg PO DAILY 07/09/23 10/15/23 cloNIDine HCL [Catapres] 0.1 mg PO TID 07/09/23 10/15/23 Bumetanide [BUMEX] 0.5 mg PO DAILY PRN 10/15/23 10/15/23 Melatonin 5 mg PO HS 10/15/23 10/15/23 Naltrexone HCl [Revia] 50 mg PO DAILY 10/15/23 10/15/23 Potassium Gluconate 99 mg PO DAILY 10/15/23 10/15/23 hydrOXYzine HCL [Atarax] 25 mg PO BID 10/15/23 10/15/23 Previous Rx's Medication Instructions Recorded Lacosamide [Vimpat] 50 mg PO BID 30 Days tab 07/12/23 Allergies Allergy/AdvReac Type Severity Reaction Status Date / Time ibuprofen Allergy Anaphylaxis Verified 10/15/23 17:29 latex Allergy Rash/Hives Verified 10/15/23 17:29 bumetanide AdvReac Nausea & Verified 10/15/23 17:29 Vomiting pollen extracts AdvReac Unknown Verified 10/15/23 17:29 Review of Systems ROS Statement: Those systems with pertinent positive or pertinent negative responses have been documented in the HPI. Review of Systems: CONST: Denies fever EYES: Denies blurry vision ENT: Denies nasal congestion C/V: Denies Chest pain RESP: Denies shortness of breath GI: Denies abdominal pain : Denies dysuria SKIN: Denies rash. MSK: Denies joint pain. NEURO: Endorses mild headache, tremors ROS Other: All systems not noted in ROS Statement are negative. Past Medical History Past Medical History: Hypertension, Seizure Disorder History of Any Multi-Drug Resistant Organisms: None Reported Past Surgical History: Section Past Psychological History: Anxiety Smoking Status: Never smoker Past Alcohol Use History: Daily Past Drug Use History: None Reported General Exam - General Exam Comments Initial Comments: General: Appears in mild alcohol withdrawals. CIWA of approximately 8. Mild tongue fasciculations, extremity tremors. HEAD: Normal with no signs of head trauma. EYES: PERRLA, EOMI, conjunctiva normal, no discharge. Pupils are 2 mm and equal bilaterally. ENT: Hearing grossly intact, normal oropharynx. RESPIRATORY: Clear breath sounds bilaterally. No wheezes, rales, or rhonchi. C/V: Regular rate and rhythm. S1 and S2 auscultated, no edema, peripheral pulses 2+ and intact throughout ABD: Abd is soft, nontender, nondistended EXT: Normal range of motion, no obvious deformity SKIN: No rashes or lesions observed on exposed skin. NEURO: Alert and oriented x 4. Cranial nerves II-XII intact. No focal sensory or strength deficits. Limitations: no limitations Course Vital Signs 10/15/23 10/15/23 10/15/23 15:29 19:03 19:53 Temperature 97.8 F Pulse Rate 68 66 72 Respiratory 18 16 18 Rate Blood Pressure 156/72 136/74 136/72 O2 Sat by Pulse 96 96 Oximetry 10/15/23 20:00 Temperature Pulse Rate 71 Respiratory 18 Rate Blood Pressure 124/66 O2 Sat by Pulse 97 Oximetry Medical Decision Making - Medical Decision Making Was pt. sent in by a medical professional or institution (, PA, CONSUMER SERVICES ADVISOR, urgent care, hospital, or group home...) When possible be specific @ -No Did you speak to anyone other than the patient for history (EMS, parent, family, police, friend...)? What history was obtained from this source @ -No Did you review nursing and triage notes (agree or disagree)? Why? @ -I reviewed and agree with nursing and triage notes Were old charts reviewed (outside hosp., previous admission, EMS record, old EKG, old radiological studies, urgent care reports/EKG's, group home records)? Report findings @ -Old charts reviewed Differential Diagnosis (chest pain, altered mental status, abdominal pain women, abdominal pain men, vaginal bleeding, weakness, fever, dyspnea, syncope, headache, dizziness, GI bleed, back pain, seizure, CVA, palpatations, mental health, musculoskeletal)? @ -Alcohol withdrawals, electrolyte abnormalities, medication refill. This list is not all inclusive. EKG interpreted by me (3pts min.). @ -As above X-rays interpreted by me (1pt min.). @ -Chest x-ray reveals no obvious acute cardiopulmonary process. CT interpreted by me (1pt min.). @ -None done U/S interpreted by me (1pt. min.). @ -None done What testing was considered but not performed or refused? (CT, X-rays, U/S, labs)? Why? @ -None What meds were considered but not given or refused? Why? @ -None Did you discuss the management of the patient with other professionals (professionals i.e. , PA, CONSUMER SERVICES ADVISOR, lab, RT, psych nurse, social service coordinator, distribution warehouse manager, teacher, command center officer, family caseworker)? Give summary @ -No Was smoking cessation discussed for >3mins.? @ -No Was critical care preformed (if so, how long)? @ -No Were there social determinants of health that impacted care today? How? (Homelessness, low income, unemployed, alcoholism, drug addiction, transportation, low edu. Level, literacy, decrease access to med. care, shelter, rehab)? @ -No Was there de-escalation of care discussed even if they declined (Discuss DNR or withdrawal of care, Hospice)? DNR status @ -No What co-morbidities impacted this encounter? (DM, HTN, Smoking, COPD, CAD, Cancer, CVA, ARF, Chemo, Hep., AIDS, mental health diagnosis, sleep apnea, morbid obesity)? @ -Alcohol abuse Was patient admitted / discharged? Hospital course, mention meds given and route, prescriptions, significant lab abnormalities, going to OR and other pertinent info. @ -Based on patient's presentation and physical exam, presents emergency department for alcohol withdrawals, seizure medication refill. Does have a history of withdrawal seizures. Has been out of her lacosamide for at least 3 to 4 days. Is normally on 50 mg twice daily. Vital signs within acceptable limits. CIWA is currently 8. Patient be given a dose of Ativan, IV fluids, as well as a dose of IV Keppra and given a dose of her Vimpat. We will obtain basic labs. She does have some mild epigastric discomfort which is likely related to GERD but we will obtain screening EKG as well as symptomatically treat the patient with IV Protonix and Zofran. Patient was in agreement this plan. Vital signs are within acceptable limits. EKG shows no signs of acute ischemia. Chest x-ray unremarkable.Patient's laboratory studies within acceptable limits. Alysis is positive for nitrates and leukocyte esterase with bacteria. Concern for UTI. Urine returned later on after admission. I updated the patient. She expressed understanding. She was started on IV anti biotics and urine culture sent. Will continue admission with CIKS protocol on board. Patient was in agreement this plan. Withdrawal symptoms improved at this time. I spoke with the admitting team, Dr. Coy Trimble who accepted the admission. Undiagnosed new problem with uncertain prognosis? @ -No Drug Therapy requiring intensive monitoring for toxicity (Heparin, Nitro, Insulin, Cardizem)? @ -No Were any procedures done? @ -No Diagnosis/symptom? @ -Alcohol withdrawals, UTI Acute, or Chronic, or Acute on Chronic? @ -Acute Uncomplicated (without systemic symptoms) or Complicated (systemic symptoms)? @ -Complicated Side effects of treatment? @ -None Exacerbation, Progression, or Severe Exacerbation] @ -No Poses a threat to life or bodily function? @ -Yes - Lab Data Result diagrams: 10/15/23 16:05 10/15/23 16:05 Lab Results 10/15/23 10/15/23 Range/Units 16:05 16:05 WBC 4.9 (3.8-10.6) k/uL RBC 3.72 L (3.80-5.40) m/uL Hgb 12.8 (11.4-16.0) gm/dL Hct 36.8 (34.0-46.0) % MCV 99.0 (80.0-100.0) fL MCH 34.4 (25.0-35.0) pg MCHC 34.8 (31.0-37.0) g/dL RDW 13.5 (11.5-15.5) % Plt Count 74 L (150-450) k/uL MPV 8.4 Neutrophils % 73 % Lymphocytes % 17 % Monocytes % 9 % Eosinophils % 1 % Basophils % 0 % Neutrophils # 3.6 (1.3-7.7) k/uL Lymphocytes # 0.8 L (1.0-4.8) k/uL Monocytes # 0.4 (0-1.0) k/uL Eosinophils # 0.0 (0-0.7) k/uL Basophils # 0.0 (0-0.2) k/uL Manual Slide Review Performed Stomatocytes Present Sodium 137 (137-145) mmol/L Potassium 4.4 (3.5-5.1) mmol/L Chloride 104 (98-107) mmol/L Carbon Dioxide 18 L (22-30) mmol/L Anion Gap 15 mmol/L BUN 10 (7-17) mg/dL Creatinine 0.55 (0.52-1.04) mg/dL Est GFR (CKD-EPI)AfAm >90 (>60 ml/min/1.73 sqM) Est GFR (CKD-EPI)NonAf >90 (>60 ml/min/1.73 sqM) Glucose 139 H (74-99) mg/dL Calcium 9.0 (8.4-10.2) mg/dL Total Bilirubin 0.8 (0.2-1.3) mg/dL AST 56 H (14-36) U/L ALT 29 (4-34) U/L Alkaline Phosphatase 155 H (38-126) U/L Total Protein 8.2 (6.3-8.2) g/dL Albumin 4.6 (3.5-5.0) g/dL Amylase 58 (30-110) U/L Lipase 42 (23-300) U/L Serum Alcohol 13 mg/dL - EKG Data -: EKG Interpreted by Me EKG Comments: 12-lead Electrocardiogram Interpretation Note EKG was reviewed and interpreted by myself. 12-lead ECG performed at 1603 is interpreted by me as revealing normal sinus rhythm at a rate of 67 beats per minute. [place] is normal. TX interval is 185 ms, QRS durations 105 ms, QTc is 463 ms.. There were no ST or T wave abnormalities to suggest myocardial ischemia or injury. R wave progression across the precordium was satisfactory. By my interpretation this EKG is non-diagnostic for acute ischemia. Disposition Clinical Impression: Alcohol withdrawal, UTI (urinary tract infection) Disposition: ADMITTED IP TO THIS HOSP Condition: Stable Time of Disposition: 18:02
[2023-10-15] MEDS: SODIUM CHLORIDE 0.9% 1,000 ML IV STA ×2 (16:40→18:08)
[2023-10-15] MEDS: ONDANSETRON 4 MG/2 ML VIAL IVP STA (16:41)
[2023-10-15 16:43] LABS: Basophils % (A) 0 %; Eosinophils % (A) 1 %; HCT 36.8 % (34.0-46.0); HGB 12.8 gm/dL (11.4-16.0); Lymphocytes # (A) 0.8 k/uL (1.0-4.8); Lymphocytes % (A) 17 %; MCH 34.4 pg (25.0-35.0); MCHC 34.8 g/dL (31.0-37.0); Mean Platelet Volume 8.4; Monocytes # (A) 0.4 k/uL (0-1.0); Monocytes % (A) 9 %; Neutrophils # (A) 3.6 k/uL (1.3-7.7); Neutrophils % (A) 73 %; RBC 3.72 m/uL (3.80-5.40); RDW 13.5 % (11.5-15.5); WBC 4.9 k/uL (3.8-10.6)
[2023-10-15] MEDS: PANTOPRAZOLE 40 MG/10 ML VIAL IVP STA (16:44)
[2023-10-15 16:45] LABS: ALT 29 U/L (4-34); AST 56 U/L (14-36); African American GFR (CKD) >90 (>60 ml/min/1.73 sqM); Albumin 4.6 g/dL (3.5-5.0); Alcohol 13 mg/dL; Alkaline Phosphatase 155 U/L (38-126); Amylase 58 U/L (30-110); Anion Gap 15 mmol/L; Blood Urea Nitrogen 10 mg/dL (7-17); Carbon Dioxide 18 mmol/L (22-30); Chloride 104 mmol/L (98-107); Glucose 139 mg/dL (74-99); Lipase 42 U/L (23-300); Non-African American GFR(CKD) >90 (>60 ml/min/1.73 sqM); Potassium 4.4 mmol/L (3.5-5.1); Sodium 137 mmol/L (137-145); Total Bilirubin 0.8 mg/dL (0.2-1.3); Total Protein 8.2 g/dL (6.3-8.2)
[2023-10-15] MEDS: LORazepam 2 MG/ML INJ IV PRN (16:47)
[2023-10-15] MEDS: LACOSAMIDE 50 MG TABLET PO STA (16:48)
[2023-10-15] MEDS: levETIRAcetam IV 500 MG/5 ML VIAL IVP STA (16:50)
[2023-10-15] MEDS: MAG HYDROX/AL HYDROX/SIMETH 30 ML, HYOSCYAMINE ELIXIR 10 ML, LIDOCAINE VISCOUS 2% 10 ML PO STA (17:02)
[2023-10-15] MEDS: THIAMINE 100 MG/ML 2 ML VIAL IM STA (17:04)
[2023-10-15 17:24] LABS: Platelet Count 74 k/uL (150-450)
[2023-10-15 17:25] LABS: Stomatocytes Present
[2023-10-15] MEDS ORDERED: ONDANSETRON 4 MG/2 ML VIAL IVP PRN (18:00)
[2023-10-15] MEDS ORDERED: NALOXONE 0.4 MG/ML 1 ML VIAL IV PRN (18:00)
[2023-10-15] MEDS ORDERED: BUMETANIDE 0.5 MG TABLET PO PRN (18:04)
[2023-10-15] MEDS: SODIUM CHLORIDE 0.9% 1,000 ML IV SCH (19:06)
[2023-10-15] MEDS: hydrOXYzine HCL 25 MG TAB PO SCH (20:10)
[2023-10-15] MEDS: MELATONIN 5 MG TABLET PO SCH (20:10)
[2023-10-15 21:09] LABS: Appearance,Urine Cloudy (Clear); Bacteria,Urine Moderate /hpf; Bilirubin,Urine Negative (Negative); Blood,Urine Negative (Negative); Color,Urine Colorless; Glucose,Urine (UA) Negative (Negative); Ketones,Urine Negative (Negative); Leukocyte Esterase,Urine Small (Negative); Mucus,Urine Rare /hpf; Nitrite,Urine Positive (Negative); PH, Urine 6.5 (5.0-8.0); Protein,Urine Negative (Negative); RBC,Urine 1 /hpf (0-5); Specific Gravity,Urine 1.011 (1.001-1.035); Squamous Epithelial Cell,Urine <1 /hpf (0-4); Urobilinogen,Urine <2.0 mg/dL (<2.0); WBC,Urine 2 /hpf (0-5)
[2023-10-15] MEDS: cloNIDine HCL 0.1 MG TAB PO SCH (22:45)
[2023-10-16] MEDS: HEPARIN SODIUM,PORCINE 5,000 UNIT/ML 1 ML VIAL SQ SCH (01:39)
--- NOTE | 2023-10-16 04:19 | P.HPIM ---
History of Present Illness H&P Date: 10/15/23 Chief Complaint: alcohol withdrawal 57 year old female with alcohol dependance and history of alcohol withdrawal seizure she came in because having early withdrawal symptoms as she did not drink today , she did not give a reason why that, and then she started shaking , she thought of drinking but was not home, and her boyfriend insisted she goes to the hospital as he was worried she would have a seizure. otherwise she said, she would have started drinking if she went home. besides , she was out of her anti seizure medications and was really worried she would have a seizure. denies any fever, chills, chest pain, SOB, URI she does have some epigastric discomfort , but denies abd pain, she also reports some dysuria but nothing major in her opinion she denies any tobacco smokig drugs , but admits to heavy alcohol drinking review of systems Pertinent positives as noted in HPI. All other systems were reviewed and are negative on exam Constitutional: No acute distress, Eyes: Anicteric sclerae, moist conjunctiva, Pupils equal round reactive to light ENMT: NC/AT Oropharynx clear, no erythema, or exudates Neck: Supple, no masses, or JVD No carotid bruits No thyromegaly Lungs: Clear to auscultation Clear to percussion Normal respiratory effort, no accessory muscle use Cardiovascular: Heart regular in rate and rhythm, No murmurs, gallops, or rubs No peripheral edema Abdominal: Soft Nontender, no guarding, rebound or rigidity Abdomen moving with respiration Normoactive bowel sounds Extremities: No digital cyanosis No clubbing Pedal pulses intact and symmetrical Radial pulses intact and symmetrical No calf tenderness Psychiatric: Alert and oriented to person, place and time Appropriate affect fair judgement Neuro Muscles Strength 5/5 in all 4 extremities Sensation to light touch grossly present throughout Cranial nerves II-XII grossly intact Past Medical History Past Medical History: Hypertension, Seizure Disorder History of Any Multi-Drug Resistant Organisms: None Reported Past Surgical History: Section Past Psychological History: Anxiety Smoking Status: Never smoker Past Alcohol Use History: Daily Past Drug Use History: None Reported Medications and Allergies Home Medications Medication Instructions Recorded Confirmed Type Folic Acid 1 mg PO DAILY 07/09/23 10/15/23 History amLODIPine [Norvasc] 10 mg PO DAILY 07/09/23 10/15/23 History cloNIDine HCL [Catapres] 0.1 mg PO TID 07/09/23 10/15/23 History Lacosamide [Vimpat] 50 mg PO BID 30 Days tab 07/12/23 10/15/23 Rx Bumetanide [BUMEX] 0.5 mg PO DAILY PRN 10/15/23 10/15/23 History Melatonin 5 mg PO HS 10/15/23 10/15/23 History Naltrexone HCl [Revia] 50 mg PO DAILY 10/15/23 10/15/23 History Potassium Gluconate 99 mg PO DAILY 10/15/23 10/15/23 History hydrOXYzine HCL [Atarax] 25 mg PO BID 10/15/23 10/15/23 History Allergies Allergy/AdvReac Type Severity Reaction Status Date / Time ibuprofen Allergy Anaphylaxis Verified 10/15/23 17:29 latex Allergy Rash/Hives Verified 10/15/23 17:29 bumetanide AdvReac Nausea & Verified 10/15/23 17:29 Vomiting pollen extracts AdvReac Unknown Verified 10/15/23 17:29 Physical Exam Vitals: Vital Signs Temp Pulse Resp BP Pulse Ox 10/16/23 02:00 76 16 122/72 97 10/16/23 01:00 67 16 120/68 96 10/16/23 00:00 61 17 125/68 95 10/15/23 23:00 62 16 131/75 96 10/15/23 22:00 69 17 120/71 96 10/15/23 21:00 70 18 115/60 96 10/15/23 20:00 71 18 124/66 97 10/15/23 19:53 72 18 136/72 96 10/15/23 19:03 66 16 136/74 10/15/23 15:29 97.8 F 68 18 156/72 96 Intake and Output 10/15/23 10/15/23 10/16/23 14:59 22:59 06:59 Other: Weight 72.575 kg Results CBC & Chem 7: 10/15/23 16:05 10/15/23 16:05 Labs: Abnormal Lab Results - Last 24 Hours (Table) 10/15/23 10/15/23 10/15/23 Range/Units 16:05 16:05 20:40 RBC 3.72 L (3.80-5.40) m/uL Plt Count 74 L (150-450) k/uL Lymphocytes # 0.8 L (1.0-4.8) k/uL Carbon Dioxide 18 L (22-30) mmol/L Glucose 139 H (74-99) mg/dL AST 56 H (14-36) U/L Alkaline Phosphatase 155 H (38-126) U/L Urine Appearance Cloudy H (Clear) Urine Nitrite Positive H (Negative) Ur Leukocyte Esterase Small H (Negative) Urine Bacteria Moderate H (None) /hpf Urine Mucus Rare H (None) /hpf Assessment and Plan Assessment: 57-year-old female with hypertension alcohol dependence, alcohol withdrawal seizures coming in due to having early alcohol withdrawal symptoms she has been out of her antiseizure medications for which she was concerned that she will have a seizure and decided to come in for evaluation I discussed the case with ED doctor and accepted the admission for alcohol withdrawal syndrome with anticipated length of stay more than 2 midnights Alcohol dependence with alcohol withdrawal syndrome Benzos per CIWA scale Thiamine daily IV fluid hydration normal saline Seizure precautions Fall precautions Alcohol level 13 Hypertension, controlled Continue with amlodipine and clonidine Seizure disorder Continue with Vimpat Patient was given loading dose of Keppra Urinary tract infection Follow-up cultures Rocephin 1 g IV piggyback daily UA was positive for nitrite White blood count within normal limit no leukocytosis Thrombocytopenia Platelets 75 Most likely secondary to alcohol abuse Denies any bleeding Continue to monitor Chest x-ray no acute cardiopulmonary process EKG normal sinus rhythm no ST changes Full code DVT prophylaxis heparin subcu 3 times daily 5000 units GI prophylaxis Protonix 40 mg daily
[2023-10-16 08:08] VITALS: RESP 18
[2023-10-16] MEDS: PANTOPRAZOLE 40 MG/10 ML VIAL IV SCH (09:45)
[2023-10-16] MEDS: amLODIPine 10 MG TAB PO SCH (09:45)
[2023-10-16] MEDS: THIAMINE 100 MG TAB PO SCH (09:52)
[2023-10-16 10:26] VITALS: TEMP 97.5
[2023-10-16 10:47] LABS: Basophils # (A) 0.02 X 10*3/uL (0.00-0.10); Basophils % (A) 0.8 %; Eosinophils # (A) 0.05 X 10*3/uL (0.04-0.35); Eosinophils % (A) 1.9 %; HCT 32.4 % (37.2-46.3); Immature Platelet Fraction 7.8 % (1.1-6.1); Lymphocytes # (A) 0.94 X 10*3/uL (0.90-5.00); Lymphocytes % (A) 35.9 %; MCH 33.5 pg (27.0-32.0); MCV 98.8 FL (80.0-97.0); Mean Platelet Volume 10.9 FL (9.5-12.2); Monocytes # (A) 0.55 X 10*3/uL (0.20-1.00); NRBC Per 100 WBC 0 X 10*3/uL (0.00-0.01); Neutrophils # (A) 1.05 X 10*3/uL (1.80-7.70); Platelet Count 53 X 10*3/uL (140-440); RBC 3.28 X 10*6/uL (4.10-5.20); RDW 13.5 % (11.5-14.5); WBC 2.62 X 10*3/uL (4.50-10.00)
[2023-10-16] MEDS: LACOSAMIDE 50 MG TABLET PO SCH (10:56)
[2023-10-16] MEDS: NALTREXONE HCL 50 MG TAB PO SCH (10:56)
[2023-10-16 11:01] LABS: BUN/Creat Ratio 9.88 Ratio (12.00-20.00); Blood Urea Nitrogen 7.9 mg/dL (9.0-27.0); Calcium 8.8 mg/dL (8.7-10.3); Chloride 101 mmol/L (96-109); Glucose 104 mg/dL (70-110); Potassium 3.9 mmol/L (3.5-5.5); Sodium 137 mmol/L (135-145)
--- NOTE | 2023-10-16 13:04 | P.DS ---
Providers Date of admission: 10/15/23 18:02 Expected date of discharge: 10/16/23 Attending physician: Sharan Cespedes MD Primary care physician: Stated None Hospital Course: Discharge Diagnosis: Alcohol withdraw in active alcoholic Pancytopenia, likely secondary to longstanding history of alcohol abuse Elevated liver enzymes, likely secondary to longstanding history of alcohol abuse Nitrite positive UTI Hypertension Anxiety Seizure disorder with history of recurrent breakthrough seizures secondary to alcohol withdraw Hospital Course: Patient is a very pleasant 57-year-old female with a past medical history of alcohol abuse, hypertension, anxiety, and alcohol withdrawal seizures. She presented to the emergency department on 10/15/2023 secondary to reports of alcohol withdraw and being out of her seizure medication. Patient underwent evaluation in our emergency department. Vital signs upon arrival show blood pressure 156/72, heart rate 68, respiratory rate 18, temp 97.8 F, and SpO2 of 96% on room air. EKG was completed showing normal sinus rhythm at 67 bpm. Chest x-ray completed negative for acute cardiopulmonary process. Labs completed and reviewed. CBC showing thrombocytopenia with platelet count of 74. BMP showing hypocarbia with bicarb of 18 and elevated anion gap of 15 otherwise normal findings. Liver profile showing elevated AST of 56 and alkaline phosphatase of 155. Serum alcohol level was 13. Patient was given a loading dose of Keppra and started on CIWA protocol for alcohol withdrawal and admitted under services for medical detox at this time. Patient monitored overnight and provided with IV fluid hydration. She reports feeling good this morning. She reports longstanding history of alcohol abuse but states she has been clean and recently fell off the [facility]. Patient reports she would like to be discharged and to follow-up with her outpatient AA meetings and [place] counseling with group and individual therapy. Vital signs currently stable with blood pressure 140/86, heart rate 65, respiratory rate 18, temp 97.5 F, and SpO2 of 98% on room air. Patient strongly advised from any and all alcohol use. Patient reports her main concern coming into the hospital is that she is out of her seizure medication as her previous PCP is no longer practicing and she is in search for a new PCP. Patient provided with prescriptions for Vimpat 50 mg twice daily and was provided with a 2-month supply to ensure she is able to get in with a PCP. Patient referred to local PCP and strongly encouraged to schedule appointment. Physical exam: Vital signs reviewed and stable. General: Nontoxic, no distress and appears stated age. Derm: Skin warm and dry, normal coloration for ethnicity. Head: Atraumatic, normocephalic and symmetric. Eyes: EOMs intact, no lid lag, and anicteric sclera Mouth: no lip lesions, mucus membranes moist Cardiovascular: regular rate and rhythm with normal S1S2, no murmur, positive posterior tibial pulses bilaterally, and cap refill < 2 seconds. Lungs: Respirations even, regular, and unlabored on room air. Lungs CTA bilaterally, no rhonchi, no rales, no wheezing, and no accessory muscle usage. Abdominal: soft, nontender to palpation, no guarding, no appreciable organomegaly Ext: ROM intact. No gross muscle atrophy, no edema, no contractures Neuro: Speech clear, face symmetrical and CN II-XII grossly intact with no noted focal neuro deficits Psych: Alert and oriented to person, place, time, and situation. Appropriate and pleasant affect. A total of 33 minutes of time were spent preparing this complex discharge summary. Pt was discharged on 10/16/2023 at 1 PM. Patient was seen independently by Nurse Practitioner. This document was prepared using [employer] dictation software. 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 I reviewed the documentation as provided by the NANCY above, who is the original author of this note. I agree with the documented assessment and plan, with the following changes: none Patient Condition at Discharge: Stable Plan - Discharge Summary New Discharge Prescriptions: New Cephalexin [Keflex] 500 mg PO Q6HR 3 Days #12 cap Lacosamide [Vimpat] 50 mg PO BID 60 Days #120 tab Continue amLODIPine [Norvasc] 10 mg PO DAILY Folic Acid 1 mg PO DAILY Bumetanide [BUMEX] 0.5 mg PO DAILY PRN PRN Reason: Edema hydrOXYzine HCL [Atarax] 25 mg PO BID Lacosamide [Vimpat] 50 mg PO BID 60 Days #120 tab Naltrexone HCl [Revia] 50 mg PO DAILY 30 Days #30 tab cloNIDine HCL [Catapres] 0.1 mg PO TID Melatonin 5 mg PO HS Potassium Gluconate 99 mg PO DAILY Discharge Medication List Folic Acid 1 mg PO DAILY 07/09/23 [History] amLODIPine [Norvasc] 10 mg PO DAILY 07/09/23 [History] cloNIDine HCL [Catapres] 0.1 mg PO TID 07/09/23 [History] Bumetanide [BUMEX] 0.5 mg PO DAILY PRN 10/15/23 [History] Melatonin 5 mg PO HS 10/15/23 [History] Potassium Gluconate 99 mg PO DAILY 10/15/23 [History] hydrOXYzine HCL [Atarax] 25 mg PO BID 10/15/23 [History] Cephalexin [Keflex] 500 mg PO Q6HR 3 Days #12 cap 10/16/23 [Rx] Lacosamide [Vimpat] 50 mg PO BID 60 Days #120 tab 10/16/23 [Rx] Lacosamide [Vimpat] 50 mg PO BID 60 Days #120 tab 10/16/23 [Rx] Naltrexone HCl [Revia] 50 mg PO DAILY 30 Days #30 tab 10/16/23 [Rx] Follow up Appointment(s)/Referral(s): Ashwini Marley MD [REFERRING] - 1 Week Patient Instructions/Handouts: Abuse of Alcohol (DC), Alcohol Use Disorder (DC) Activity/Diet/Wound Care/Special Instructions: Activity: As tolerated. Take breaks as needed. Diet: Heart healthy and carb consistent diet. Avoid salts, or foods with hidden salts such as canned or boxed foods and frozen dinners. Extra salt makes your heart work harder and traps the fluid in your body for longer. Special Instructions: As we discussed, it is strongly recommended you continue to go to your AA meetings and outpatient and group therapy at [place]. Strongly recommend avoidance of any and all alcohol use. Truly wishing you the best of luck on your journey toward sobriety. Thank you for allowing us to participate in your care, it was truly a pleasure having you for our patient!!! . Discharge Disposition: HOME SELF-CARE
[2023-10-16 13:16] LABS: Amphetamine Screen,Urine Not Detected (NotDetected); Barbiturate Screen,Urine Not Detected (NotDetected); Benzodiazepines Screen,Urine Detected (NotDetected); Cocaine Screen,Urine Not Detected (NotDetected); Methadone Screen, Urine Not Detected (NotDetected); Opiate Screen,Urine Not Detected (NotDetected); Oxycodone Screen, Urine Not Detected (NotDetected); Phencyclidine Screen,Urine Not Detected (NotDetected); Tricyclic Antidepressant,Urine Not Detected (NotDetected); Urn Cannabinoid Scrn Not Detected (NotDetected)
[2023-10-16 14:14] VITALS: BP 140/91; PULSE 67
[2023-10-17] MEDS ORDERED: PANTOPRAZOLE 40 MG TABLET PO SCH (09:00)
== END 2023-10-16 14:40 | disposition home or self-care (01) ==
LOC: EC 15:21 → 5NMEDONC 18:02
PROVIDERS: ADMIT Student in an Organized Health Care Education/Training Program; ATTEND Student in an Organized Health Care Education/Training Program
DX: F10.239 Alcohol dependence with withdrawal, unspecified (principal); G40.909 Epilepsy, unspecified, not intractable, without status epilepticus; N39.0 Urinary tract infection, site not specified; I10 Essential (primary) hypertension; F41.9 Anxiety disorder, unspecified; D69.6 Thrombocytopenia, unspecified; D61.818 Other pancytopenia; R74.8 Abnormal levels of other serum enzymes; Y90.0 Blood alcohol level of less than 20 mg/100 ml; Z79.899 Other long term (current) drug therapy; Z88.6 Allergy status to analgesic agent; Z91.040 Latex allergy status
CPT/HCPCS: 96376; 96361; 96365; 96372 ×2; 96375; 99285; 36415; 93005; 80053; 80048; 82150; 83690; 83735; 85025 ×2; 81001; 80306; 80320; 87086; 87077; 87186; 71045; G0378 ×2; J2060 ×2; J1644; J3411; J2405; J0696; J1953; C9113 ×2